=== PATIENT | female | born 2000 | race Caucasian/White ===

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

== ENCOUNTER 2021-08-09 02:01 | Emergency (ER) | payer MEDICAID ==
[~2021-08-09] VITALS: Ht 162.6 cm; Wt 123.8 kg
[2021-08-09 04:36] VITALS: BP 121/84
[2021-08-09] MEDS ORDERED: BENZ100C19 PO (06:38)
[2021-08-09] MEDS ORDERED: PRED20TA2 PO (06:38)
[2021-08-09] MEDS ORDERED: DOXY-332 PO (06:38)
== END 2021-08-09 07:30 | disposition home or self-care (01) ==
LOC: ER 02:01
DX: J06.9 Acute upper respiratory infection, unspecified (principal)
CPT/HCPCS: 71045

== ENCOUNTER 2023-08-09 08:18 | Emergency (ER) | payer MEDICAID ==
[~2023-08-09] VITALS: Ht 162.6 cm; Wt 136.5 kg
[~2023-08-09 08:18] MED LIST: BENZ100C19 PO; DOXY-448 PO; PRED20TA2 PO
[2023-08-09 08:40] VITALS: TEMP 97
[2023-08-09 08:45] VITALS: BP 128/95; PULSE 74; RESP 18; O2SAT 96
[2023-08-09] MEDS: LACTULOSE 20Gm/30ML SOLN PO ONE (09:08)
[2023-08-09] MEDS: FLEET ENEMA(ADULT) 135 ML PR ONE (10:40)
== END 2023-08-09 12:07 | disposition home or self-care (01) ==
LOC: ER 08:18
DX: K59.00 Constipation, unspecified (principal)
CPT/HCPCS: 74018